=== PATIENT | male | born 1980 | race African-American/Black ===

== ENCOUNTER 2021-12-26 07:21 | Emergency (ER) | payer OTHER, BC ==
[2021-12-26] MEDS ORDERED: Ketorolac 30 MG/ML SDV IM ONE (08:40)
== END 2021-12-26 09:10 | disposition home or self-care (01) ==
LOC: LL.ED 07:21
DX: S99.921A Unspecified injury of right foot, initial encounter (principal); W22.09XA Striking against other stationary object, initial encounter
CPT/HCPCS: 73620-RT; 96372; 99283; J1885